=== PATIENT | female | born 1955 | race Caucasian/White ===

== ENCOUNTER → 2021-06-01 | Outpatient (CLI) | payer MEDICARE ==
[~2021-06-01] MED LIST: ASPI325 PO; ATOR80 PO; HYDCHL12.5 PO; LOSA25 PO; METO25ER PO; NITR.4SL SL
[2021-06-05 14:08] LABS: HPV 16 Negative (Negative); HPV 18 Negative (Negative); HPV OTHER HR TYPES Negative (Negative)
== END | disposition home or self-care (01) ==
LOC: LAB SHORT 13:55 → LAB 13:55
PROVIDERS: Family Medicine
DX: Z12.4 Encounter for screening for malignant neoplasm of cervix (principal)
CPT/HCPCS: 87624; G0123

== ENCOUNTER → 2021-07-19 | Outpatient (CLI) | payer MEDICARE | LOC: LAB SHORT 07:23 → LAB 07:23 | DX: R93.89 Abnormal findings on diagnostic imaging of other specified body structures (principal); N95.0 Postmenopausal bleeding; C54.1 Malignant neoplasm of endometrium | CPT/HCPCS: 88305 ==